=== PATIENT | female | born 1970 | race Hispanic/Latino ===

== ENCOUNTER 2020-02-13 11:00 | Outpatient (CLI) | payer MEDICAID | END 2020-02-13 11:01 | disposition home or self-care (01) | LOC: SLR 11:00 | PROVIDERS: ATTEND Internal Medicine Critical Care Medicine | DX: G47.33 Obstructive sleep apnea (adult) (pediatric) (principal); R40.0 Somnolence; I10 Essential (primary) hypertension | CPT/HCPCS: G0399 ==